=== PATIENT | female | born 1965 | race Asian ===

== ENCOUNTER 2023-01-01 19:14 | Emergency (ER) | payer BC ==
[~2023-01-01 19:14] MED LIST: Iopamidol 300 61% 100 ML VIAL FS ONE
[2023-01-01 20:23] LABS: #Eosinphils 0.1 10x3/uL (0.0-0.5); #Monocytes 0.9 10x3/uL (0.0-1.1); #Neutrophils 6.4 10x3/uL (1.5-8.4); %Basophils 0.3 % (0.0-2.0); %Eosinophils 0.8 % (0.0-6.0); %Lymphocytes 21.1 % (18.0-47.0); %Monocytes 9.8 % (0.0-10.0); %Neutrophils 67.8 % (40.0-75.0); Hemoglobin 11.9 g/dL (12.0-15.5); Mean Corpuscular HGB CONC 33.1 g/dL (32.0-36.0); Mean Corpuscular Hemoglobin 30.8 pg (27.0-33.0); Mean Corpuscular Volume 93.3 fl (81.6-98.3); Mean Platelet Volume 9.7 fl (7.4-10.4); Platelet Count 262 10x3/uL (150-450); RBC Distribution Width 11.9 % (11.5-14.5); Red Blood Cell (RBC) Count 3.86 10x6/uL (3.90-5.03); White Blood Cell (WBC) Count 9.5 10x3/uL (3.5-10.5)
[2023-01-01] MEDS ORDERED: Lidocaine Viscous Sol 2% 15 ml UD Cup ONE (20:32)
[2023-01-01] MEDS ORDERED: Mag-Al Plus 1200 MG/1200 MG/120 MG/30 ML UDCUP ONE (20:32)
[2023-01-01] MEDS ORDERED: Ondansetron PF 4 MG/2 ML Vial ONE (20:33)
[2023-01-01] MEDS ORDERED: Ketorolac Tromethamine 30 MG/ML VIAL ONE (20:33)
[2023-01-01 20:37] LABS: ALT (SGPT) 51 U/L (8-55); AST (SGOT) 129 U/L (5-34); Albumin 3.7 g/dL (3.5-5.0); Alkaline Phosphatase 74 U/L (40-110); Anion Gap 11 mmol/L (10-20); BUN (Urea Nitrogen) 23 mg/dL (9.8-20.1); Bilirubin, Total 0.7 mg/dL (0.2-1.2); Calc. Creatinine Clearance 0 mL/min (70-130); Calcium 8.8 mg/dL (7.8-10.44); Carbon Dioxide 29 mmol/L (22-29); Chloride 102 mmol/L (98-107); Estimated GFR 86; Globulin 2.2 g/dL (2.4-3.5); Glucose 98 mg/dL (70-105); Lipase 42 U/L (8-78); Potassium 3.4 mmol/L (3.5-5.1); Protein, Total 5.9 g/dL (6.0-8.3); Sodium 139 mmol/L (136-145)
== END 2023-01-01 22:24 | disposition home or self-care (01) ==
LOC: CSHERS 19:14
DX: R10.13 Epigastric pain (principal); K83.8 Other specified diseases of biliary tract
CPT/HCPCS: 71045; 74177; 76705; 80053; 83690; 84484; 85025; 93005; 96361; 96374; 96375; J1885; J2405; Q9967